=== PATIENT | female | born 1990 | race Caucasian/White ===

== ENCOUNTER 2019-11-19 04:38 | Emergency (ER) | payer OTHER ==
[2019-11-19 04:44] VITALS: BMI 36.3
[2019-11-19] MEDS ORDERED: SODIUM CHLORIDE 0.9% 500 ML INFUS.BAG IV ONE (04:57)
[2019-11-19] MEDS ORDERED: ONDANSETRON 4 MG/2 ML VIAL IVPUSH ONE (04:57)
[2019-11-19 05:28] LABS: BASO % 0.2 % (0-2.0); EOS % 0.9 % (0-4.5); HEMOGLOBIN 13.4 GM/dL (10.7-15.3); LYMPH % 7.7 % (8-40); MCH 27.4 pg (25.7-33.7); MCHC 32.7 g/dl (32.0-36.0); MEAN CELL VOLUME 83.7 fl (80-96); MEAN PLT VOLUME 8.3 fl (7.5-11.1); MONO % 5.3 % (3.8-10.2); NEUT % 85.9 % (42.8-82.8); PLATELET COUNT 369 K/MM3 (134-434); RDW 13.4 % (11.6-15.6); WHITE BLOOD COUNT 15.1 K/mm3 (4.0-10.0)
[2019-11-19 05:47] LABS: BLOOD UREA NITROGEN 13.5 mg/dL (7-18); CALCIUM 8.9 mg/dL (8.5-10.1); CREATININE 0.7 mg/dL (0.55-1.3); POTASSIUM 3.7 mmol/L (3.5-5.1)
[2019-11-19 06:30] VITALS: BP 105/63; PULSE 82; TEMP 98
== END 2019-11-19 06:40 | disposition home or self-care (01) ==
LOC: JER 04:38
PROC: 3E033GC Introduction of Other Therapeutic Substance into Peripheral Vein, Percutaneous Approach (ICD-10-PCS; principal; 2019-11-19)
DX: A05.9 Bacterial foodborne intoxication, unspecified (principal); E86.0 Dehydration
CPT/HCPCS: 36415; 80048; 84703; 85025; 96374; 99284-25

== ENCOUNTER 2023-12-17 17:14 | Emergency (ER) | payer OTHER ==
[2023-12-17 17:28] VITALS: BMI 38.7
[2023-12-17 18:49] LABS: BASO % 0.8 % (0-2.0); EOS % 1.4 % (0-4.5); HEMATOCRIT 38.7 % (32.4-45.2); HEMOGLOBIN 12.6 GM/dL (10.7-15.3); MCH 27.3 pg (25.7-33.7); MCHC 32.7 g/dl (32.0-36.0); MEAN CELL VOLUME 83.7 fl (80-96); MEAN PLT VOLUME 8.1 fl (7.5-11.1); NEUT % 70.8 % (42.8-82.8); PLATELET COUNT 376 10^3/uL (134-434); RBC 4.63 M/mm3 (3.60-5.2); RDW 13.4 % (11.6-15.6); WHITE BLOOD COUNT 10.6 K/mm3 (4.0-10.0)
[2023-12-17 18:52] LABS: PH,URINE 5.5 (5.0-8.0); URINE APPEARANCE CLEAR; URINE BILIRUBIN NEGATIVE (NEGATIVE); URINE COLOR YELLOW; URINE GLUCOSE (UA) NEGATIVE (NEGATIVE); URINE KETONE TRACE (NEGATIVE); URINE LEUK ESTERASE NEGATIVE (NEGATIVE); URINE NITRITE NEGATIVE (NEGATIVE); URINE PROTEIN NEGATIVE (NEGATIVE); URINE UROBILINOGEN 0.2 mg/dL (0.2-1.0)
[2023-12-17] MEDS ORDERED: ACETAMINOPHEN INJECTION 100 ML IVPB ONE (19:05)
[2023-12-17] MEDS: SODIUM CHLORIDE 1,000 ML IV STA (19:11)
[2023-12-17] MEDS: ACETAMINOPHEN 1000 MG/100 ML BAG IVPB ONE (19:11)
[2023-12-17 19:14] LABS: POTASSIUM 3.7 mmol/L (3.5-5.1)
[2023-12-17 19:15] LABS: CALCIUM 8.6 mg/dL (8.5-10.1)
[2023-12-17 19:16] LABS: ALBUMIN 4.1 g/dl (3.4-5.0); BLOOD UREA NITROGEN 11.4 mg/dL (7-18)
[2023-12-17 19:19] LABS: CREATININE 0.8 mg/dL (0.55-1.3)
[2023-12-17 19:21] LABS: BILIRUBIN,TOTAL 0.4 mg/dL (0.2-1); TOT PROT 7.8 g/dl (6.4-8.2)
[2023-12-17 20:21] VITALS: BP 106/75; PULSE 87; RESP 17; TEMP 97.6
== END 2023-12-17 20:21 | disposition home or self-care (01) ==
LOC: JER 17:14
PROC: 3E033NZ Introduction of Analgesics, Hypnotics, Sedatives into Peripheral Vein, Percutaneous Approach (ICD-10-PCS; principal; 2023-12-17)
PROC: 3E0337Z Introduction of Electrolytic and Water Balance Substance into Peripheral Vein, Percutaneous Approach (ICD-10-PCS; 2023-12-17)
DX: R51.9 Headache, unspecified (principal); R53.1 Weakness; R07.89 Other chest pain; R19.7 Diarrhea, unspecified; R00.0 Tachycardia, unspecified; M79.671 Pain in right foot; M79.10 Myalgia, unspecified site
CPT/HCPCS: 36415; 70450-TC; 80053; 81003; 84703; 85025; 93005; 93010; 99285-25; J0131